=== PATIENT | male | born 1960 | race Caucasian/White ===

== ENCOUNTER → 2022-07-03 | Outpatient (CLI) | payer OTHER ==
[~2022-07-03] MED LIST: CATHETER FLUSH 10 ML SYR IV PRN; HOLD METFORMIN - RECEIVED CONTRAST 20 ML VIAL IV SCH; IOHEXOL 350 MG/ML 100 ML (OMNIPAQUE 350) VIAL IV ONE; NS 100 ML (IVPB) BAG IV ONE
--- NOTE | 2022-07-03 17:31 | Diagnostic Imaging Report ---
PROCEDURE: CT neck soft tissue with contrast. TECHNIQUE: Multiple contiguous axial images were obtained through the neck after the administration of contrast. Auto Exposure Controls were utilized during the CT exam to meet ALARA standards for radiation dose reduction. INDICATION: Left-sided neck swelling. COMPARISON: None. FINDINGS: No mass or fluid collection is seen in the neck. No cervical lymphadenopathy. Normal parotid and submandibular glands. Normal thyroid. No suspicious mass or enhancement is seen in the pharynx or larynx. Normal floor of the mouth, tongue base, epiglottis and retropharyngeal space. Major vessels in the neck are grossly patent. The lung apices are clear. Moderate spondylotic changes in the cervical spine are greatest at C5-C7. No acute osseous findings. Paranasal sinuses and mastoids are unremarkable. IMPRESSION: No acute CT findings in the neck. No mass, fluid collection or lymphadenopathy. Dictated by: Dictated on workstation # [id number]
== END ==
LOC: RAD 12:15
PROVIDERS: ATTEND Family Medicine
DX: R22.1 Localized swelling, mass and lump, neck (principal)
CPT/HCPCS: 70491